=== PATIENT | female | born 1975 | race Caucasian/White ===

== ENCOUNTER 2021-11-13 13:16 | Outpatient (CLI) | payer BC | END 2021-11-13 13:17 | disposition home or self-care (01) | LOC: CSHCT 13:16 | PROVIDERS: ATTEND Otolaryngology Plastic Surgery within the Head & Neck | DX: H81.02 Meniere's disease, left ear (principal) | CPT/HCPCS: 70480 ==

== ENCOUNTER 2021-12-25 13:12 | Outpatient (CLI) | payer BC ==
[~2021-12-25 13:12] MED LIST: Magnevist 469MG/ML 20 ML VIAL ONE
== END 2021-12-25 13:13 | disposition home or self-care (01) ==
LOC: CSHMRI 13:12
PROVIDERS: ATTEND Otolaryngology Plastic Surgery within the Head & Neck
DX: H81.02 Meniere's disease, left ear (principal); H90.42 Sensorineural hearing loss, unilateral, left ear, with unrestricted hearing on the contralateral side
CPT/HCPCS: 70553; A9579